=== PATIENT | female | born 1995 | race American Indian/Alaskan Native ===

== ENCOUNTER 2017-02-03 10:32 | Day surgery (SDC) | payer MEDICAID ==
--- NOTE | 2017-02-03 11:13 | Anesthesia Consultation ---
Anesthesia Consult and Med Hx Date of service: 02/03/17 - Airway Anesthetic Teeth Evaluation: Good ROM Head & Neck: Adequate Mental/Hyoid Distance: Adequate Mallampati Class: Class II Intubation Access Assessment: Probably Good - Pulmonary Exam CTA: Yes - Cardiac Exam Cardiac Exam: RRR - Pre-Operative Health Status ASA Pre-Surgery Classification: ASA2 Proposed Anesthetic Plan: General - Pulmonary Hx Smoking: Yes (CIGARETTES 5 TO 6 CIGS EVERY WEEKEND) Hx Asthma: Yes Hx Sleep Apnea: No - Cardiovascular System Hx Hypertension: No - Central Nervous System Hx Seizures: No CVA: No Hx Psychiatric Problems: No - Gastrointestinal Hx Gastroesophageal Reflux Disease: No - Other Systems Hx Alcohol Use: Yes Hx Substance Use: Yes (MJ) Hx Cancer: No
--- NOTE | 2017-02-03 11:13 | Anesthesia Day of Surgery ---
Anesthesia Day of Surgery - Day of Surgery Patient Examined: Yes Patient H&P Reviewed: Yes Patient is NPO: Yes
[2017-02-03] MEDS ORDERED: ZOFRAN IV PRN ×2 (11:14→11:31)
[2017-02-03] MEDS ORDERED: NORCO 5/325 PO PRN ×2 (11:14→15:35)
[2017-02-03] MEDS ORDERED: PEPCID PO NR (12:00)
[2017-02-03] MEDS ORDERED: VERSED IV NR (12:00)
[2017-02-03] MEDS ORDERED: LACTATED RINGERS 1,000 ML IV SCH (12:00)
[2017-02-03] MEDS ORDERED: SUBLIMAZE ONE ×2 (12:02→12:51)
[2017-02-03] MEDS ORDERED: DIPRIVAN 10 MG/ML IV ONE (12:02)
[2017-02-03] MEDS ORDERED: ZEMURON IV ONE (12:03)
[2017-02-03] MEDS ORDERED: DECADRON ONE (12:03)
[2017-02-03] MEDS ORDERED: XYLOCAINE MPF 2% ONE (12:03)
[2017-02-03] MEDS ORDERED: ZOFRAN ONE (12:03)
[2017-02-03 12:17] LABS: Hematocrit 36.6 % (30.3-42.9); Hemoglobin 12.2 gm/dl (10.1-14.3); Mean Corpuscular HGB Conc 33 % (30-34); Mean Corpuscular Hemoglobin 27 pg (28-32); Mean Corpuscular Volume 82 fl (79-97); Platelet Count 260 K/mm3 (140-440); Red Blood Count 4.48 M/mm3 (3.65-5.03); Red Cell Distribution Width 13.7 % (13.2-15.2); White Blood Count 7.5 K/mm3 (4.5-11.0)
[2017-02-03 12:33] LABS: Albumin 3.9 g/dL (3.9-5); Albumin/Globulin Ratio 1.1 %; Alkaline Phosphatase 77 units/L (35-129); Bilirubin,Total 0.7 mg/dL (0.1-1.2); Blood Urea Nitrogen 9 mg/dL (7-17); Calcium 8.9 mg/dL (8.4-10.2); Carbon Dioxide 20 mmol/L (22-30); Chloride 103.1 mmol/L (98-107); Glucose 93 mg/dL (65-100); Sodium 138 mmol/L (137-145); Total Protein 7.4 g/dL (6.3-8.2)
[2017-02-03] MEDS ORDERED: ANCEF/STERILE WATER 2 GM/20 ML 2 GM/20 ML SYRINGE IV NR (13:00)
[2017-02-03] MEDS ORDERED: NACL 0.9% IR ONE (13:36)
[2017-02-03] MEDS ORDERED: MARCAINE 0.5% INFILTRATI ONE (13:36)
[2017-02-03] MEDS: DILAUDID IV PRN ×4 (14:15→15:05)
--- NOTE | 2017-02-03 15:35 | Discharge Summary ---
Short Stay Discharge Plan Activity: advance as tolerated Weight Bearing Status: Weight Bear as Tolerated Diet: regular Wound: per your surgeon's advice
[2017-02-03 15:45] LABS: Alanine Aminotransferase 11 units/L (7-56); Anion Gap 20 mmol/L; Potassium 4.7 mmol/L (3.6-5.0)
--- NOTE | 2017-02-03 15:46 | Operative Report ---
PREOPERATIVE DIAGNOSIS: Umbilical hernia. POSTOPERATIVE DIAGNOSES: 1. Umbilical hernia. 2. Large lipoma of the epigastric area, this at least 3 cm superior to the hernial defect. SURGERY: 1.Diagnostic laparoscopy and removal of subcutaneous lipoma, this is about 6 x 6 x 6 cm in the epigastrium. 2.Laparoscopic repair of umbilical hernia. 3.We took pictures of all these. ANESTHESIA: General. BLOOD LOSS: Minimal. FINDINGS: The patient had a hernial defect in the umbilical area that is about 1.5 x 1 cm. We put a medium sized Ventralex graft there. DESCRIPTION OF PROCEDURE: As to the lipoma of the epigastrium, we had to make an incision in the midline to taken out, it was multilobulated and very large. With this small defect in the fascia, this closed with the use of 2 stitches of 2-0 Vicryl. As to the hernial defect in the umbilicus, this was closed with the use of Ventralex graft medium size with a tacker. DESCRIPTION OF PROCEDURE: With the patient in supine position draped in usual fashion. I examined the abdominal cavity, there is an area of fairly good size mass that is fairly firm in the epigastrium, so I put two trocars, #5 each and then from within I could see the hernia; however, the lipoma was far, a good 3-4 cm superior to the hernial defect, so I had to make an incision in the skin just over it and I was able to remove it in toto. It is multilobulated, at least 6 x 6 x 6 cm, with a very minute defect in the fascia, barely about 0.5 x 0.5 cm. So after removing it, the defect was closed with [id number] stitch of 2-0 Vicryl and the subcutaneous tissue with a same interruptedly and the skin with 4-0 Vicryl. My attention was then directed to the hernial area where I was able to introduce a medium size Ventralex graft. It was tacked to the fascia from within with a tacker all around in 2 rows. We were well satisfied, then the 2 ends were transected just flushed with subcutaneous tissue after which these were tacked to the subcutaneous with 2-0 Vicryl and 4-0 for the skin on all of them. After removing the camera and the trocars, the patient was then transferred to the recovery room in good condition. We applied an abdominal binder on her. JOB# [id number] YOMI/CARMITA
[2017-02-03] MEDS ORDERED: ZOFRAN IV ONE (17:28)
[2017-02-03 18:00] VITALS: BP 104/71
--- NOTE | 2017-02-03 20:59 | Discharge Summary ---
FINAL DIAGNOSES: 1. Umbilical hernia. 2. Large lipoma in the epigastric area. HOSPITAL COURSE: This patient was seen in my office yesterday because of pain to the umbilical area. She had been having this for quite a while now. It came after she was about 2 years ago. Along with that, she felt a mass in the midepigastric area. She had nausea, but no vomiting. So, examination showed the above with a mass in the epigastric area and? umbilical hernia with a defect of about 2 cm. So, she was admitted today where she underwent this as an outpatient with laparoscopic repair of umbilical hernia and application of a moderate sized Ventralex graft and removal of the lipoma that is about 6 x 6 x 6 cm, located in the midepigastric area. We thought that the mass may represent a hernia, apparently it was not. So, she was discharged home to be seen in my office in about a week. No pushing, no pulling, no driving. Given prescription for Vicodin to be taken every 4-6 hours p.r.n. for pain. JOB# [id number] YOMI/CARMITA
== END 2017-02-03 18:05 | disposition home or self-care (01) ==
LOC: OR 10:32
PROVIDERS: ATTEND Surgery
DX: K42.9 Umbilical hernia without obstruction or gangrene (principal); D17.5 Benign lipomatous neoplasm of intra-abdominal organs; F17.210 Nicotine dependence, cigarettes, uncomplicated; J45.909 Unspecified asthma, uncomplicated; F12.90 Cannabis use, unspecified, uncomplicated; Z72.89 Other problems related to lifestyle
CPT/HCPCS: 22901; 36415; 49652; 80053; 81025; 85027; 88304; 93005; 93010; C1781; J0690; J1100; J1170; J2250; J2405; J2704; J3010; J7120